=== PATIENT | female | born 1995 | race Asian ===

== ENCOUNTER 2017-08-30 09:06 | Inpatient (IN) | payer OTHER ==
--- NOTE | 2017-08-30 09:34 | EDPHY ---
H & P Stated Complaint: M1-SI - Personal History LMP (Females 10-55): Unknown Current Tetanus Diphtheria and Acellular Pertussis (TDAP): Unsure - Medical/Surgical History Hx Asthma: No Hx Chronic Respiratory Disease: No Hx Diabetes: No Hx Cardiac Disease: No Hx Renal Disease: No Hx Cirrhosis: No Hx Alcoholism: No Hx HIV/AIDS: No Hx Splenectomy or Spleen Trauma: No Other PMH: denies - Social History Smoking Status: Never smoked Time Seen by Provider: 08/30/17 09:22 HPI/ROS: CHIEF COMPLAINT: Suicidal ideation, M1 HISTORY OF PRESENT ILLNESS: 22-year-old female arrives via police on an M1 hold after making suicidal statements to a friend. 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 She notes increasing depression related to difficulty with school, missing her family [place]. She has no suicidal plan. Denies self- injurious behavior. Denies alcohol or drug use. REVIEW OF SYSTEMS: A ten point review of systems was performed and is negative with the exception of the items mentioned in the HPI PAST MEDICAL & SURGICAL HISTORY: No prior history of suicidal attempt or hospitalization for mental health issues SOCIAL HISTORY: Nonsmoker. No illicit drug or alcohol use PHYSICAL EXAM (Prior to examination, patient consented to physical exam, hands were washed and my usual and customary physical exam procedures followed) 1) GENERAL: Well-developed, well-nourished, alert and oriented. Appears to be in no acute distress. Depressed, flat affect 2) HEAD: Normocephalic, atraumatic 3) HEENT: Pupils equal, round, reactive to light bilaterally. Sclera anicteric. 4) NECK: Full range of motion, no meningeal signs. 5) LUNGS: Clear auscultation bilaterally, no wheezes, no rhonchi, no retractions. 6) HEART: Regular rate and rhythm, no murmur, no heave, no gallop. 7) ABDOMEN: No guarding, no rebound, no focal tenderness, negative McBurney's, negative Castellano's, negative Rovsing's, negative peritoneal sign, 8) MUSCULOSKELETAL: Moving all extremities, no focal areas of tenderness, no obvious trauma. No peripheral edema or discoloration. 9) BACK: No CVA tenderness, no midline vertebral tenderness, no fluctuance, no step-off, no obvious trauma, no visual or palpable abnormality. 10) SKIN: No rash, no petechiae. 11) Psychiatric: Patient is oriented X 3, there is no agitation. Depressed, flat affect, withdrawn DIFFERENTIAL DIAGNOSIS: In no particular order including but not limited to suicidal ideation, homicidal ideation, depression (Gabbie Hawthorne Anisha) Constitutional: Initial Vital Signs Temperature (C) 36.8 C 08/30/17 09:13 Heart Rate 105 H 08/30/17 09:13 Respiratory Rate 16 08/30/17 09:13 Blood Pressure 97/70 L 08/30/17 09:13 O2 Sat (%) 93 08/30/17 09:13 O2 Delivery Mode Room Air Allergies/Adverse Reactions: No Known Allergies Allergy (Unverified 06/24/15 01:03) Home Medications: Medication Instructions Recorded NK [No Known Home Meds] 08/30/17 Medical Decision Making ED Course/Re-evaluation: 9:30 a.m.: Patient is on an M1 hold. Care of patient under supervision of secondary supervising physician Dr Santacruz . (Gabbie Hawthorne Anisha) 1pm: I assumed care of this pt. On an M1 hold for SI. MH eval pending. For p.m.-accepted to [address] [place] [address] Telles. EMTALA form filled out. (Luba Olsen) - Data Points Laboratory Results: Laboratory Results 08/30/17 09:30 08/30/17 09:30 08/30/17 08/30/17 08/30/17 12:07 09:30 09:30 WBC RBC Hgb Hct MCV MCH MCHC RDW Plt Count MPV Neut % (Auto) Lymph % (Auto) [place] % (Auto) Eos % (Auto) Baso % (Auto) Nucleat RBC Rel Count Absolute Neuts (auto) Absolute Lymphs (auto) Absolute Monos (auto) Absolute Eos (auto) Absolute Basos (auto) Absolute Nucleated RBC Immature Gran % Immature Gran # Sodium 143 mEq/L mEq/L (135-145) Potassium 3.5 mEq/L mEq/L (3.5-5.2) Chloride 108 mEq/L mEq/L (97-110) Carbon Dioxide 21 mEq/l L mEq/l (22-31) Anion Gap 14 mEq/L mEq/L (8-16) BUN 10 mg/dL mg/dL (7-23) Creatinine 0.5 mg/dL L mg/dL (0.6-1.0) Estimated GFR > 60 Glucose 74 mg/dL mg/dL (70-100) Calcium 9.5 mg/dL mg/dL (8.5-10.4) Beta HCG, Qual NEGATIVE Salicylates < 1.0 mg/dL L mg/dL (2.0-20.0) Urine Opiates Screen NEGATIVE (NEGATIVE) Acetaminophen < 10 mcg/mL L mcg/mL (10-30) Urine Barbiturates NEGATIVE (NEGATIVE) Ur Phencyclidine Scrn NEGATIVE (NEGATIVE) Ur Amphetamine Screen NEGATIVE (NEGATIVE) U Benzodiazepines Scrn NEGATIVE (NEGATIVE) Urine Cocaine Screen NEGATIVE (NEGATIVE) U Marijuana (THC) Screen NEGATIVE (NEGATIVE) Ethyl Alcohol 11 mg/dL H mg/dL (0-10) 08/30/17 09:30 WBC 3.34 10^3/uL L 10^3/uL (3.80-9.50) RBC 4.64 10^6/uL 10^6/uL (4.18-5.33) Hgb 14.1 g/dL g/dL (12.6-16.3) Hct 41.7 % % (38.0-47.0) MCV 89.9 fL fL (81.5-99.8) MCH 30.4 pg pg (27.9-34.1) MCHC 33.8 g/dL g/dL (32.4-36.7) RDW 12.7 % % (11.5-15.2) Plt Count 174 10^3/uL 10^3/uL (150-400) MPV 10.3 fL fL (8.7-11.7) Neut % (Auto) 50.9 % % (39.3-74.2) Lymph % (Auto) 32.9 % % (15.0-45.0) [place] % (Auto) 15.3 % H % (4.5-13.0) Eos % (Auto) 0.3 % L % (0.6-7.6) Baso % (Auto) 0.3 % % (0.3-1.7) Nucleat RBC Rel Count 0.0 % % (0.0-0.2) Absolute Neuts (auto) 1.70 10^3/uL 10^3/uL (1.70-6.50) Absolute Lymphs (auto) 1.10 10^3/uL 10^3/uL (1.00-3.00) Absolute Monos (auto) 0.51 10^3/uL 10^3/uL (0.30-0.80) Absolute Eos (auto) 0.01 10^3/uL L 10^3/uL (0.03-0.40) Absolute Basos (auto) 0.01 10^3/uL L 10^3/uL (0.02-0.10) Absolute Nucleated RBC 0.00 10^3/uL 10^3/uL (0-0.01) Immature Gran % 0.3 % % (0.0-1.1) Immature Gran # 0.01 10^3/uL 10^3/uL (0.00-0.10) Sodium Potassium Chloride Carbon Dioxide Anion Gap BUN Creatinine Estimated GFR Glucose Calcium Beta HCG, Qual Salicylates Urine Opiates Screen Acetaminophen Urine Barbiturates Ur Phencyclidine Scrn Ur Amphetamine Screen U Benzodiazepines Scrn Urine Cocaine Screen U Marijuana (THC) Screen Ethyl Alcohol Departure - Departure Disposition: Home, Routine, Self-Care Clinical Impression: Severe major depression, Suicidal ideation Condition: Good Instructions: Depression (ED), Suicide Prevention for Adults (ED) Referrals: [facility] [Outside] - As per Instructions (Follow-up as suggested.)
[2017-08-30 09:41] LABS: PLATELET COUNT 174 10^3/uL (150-400)
[2017-08-30] MEDS ORDERED: MAGNESIUM HYDROXIDE 30 ML UDCUP PO PRN (21:18)
[2017-08-30] MEDS ORDERED: MAG HYDROX/AL HYDROX/SIMETH 30 ML UDCUP PO PRN (21:18)
[2017-08-30] MEDS ORDERED: ACETAMINOPHEN 325 MG TAB PO PRN (21:18)
--- NOTE | 2017-08-31 09:11 | GHP ---
[f rep st] HISTORY AND PHYSICAL DATE OF ADMISSION: 08/30/2017 CHIEF COMPLAINT: Depression and suicidality. HISTORY OF PRESENT ILLNESS: A 22-year-old female with a history of depression, who presents after re turning home from [place] for a visit, feeling deeply depressed and making attempts at ending her life, reported by her roommate. Upon my evaluation, the patient is reporting no vision changes. No heada omkar. Has had some sore throat in the last couple days, although, no dysphagia. Denies shortness of breath, palpitations, chest pain. Denies abdominal pain. Denies nausea or vomiting. Denies diarrhe a. She reports she does not stool normally every day, which has not been different recently. Her or al intake has been poor. Denies any dysuria. Denies hematuria. Denies rashes, subjective fevers or chills. Denies myalgias or arthralgias. Has had an injury to her right knee with intermittent disc omfort with activity, that is also unchanged. PAST MEDICAL HISTORY: Depression. SOCIAL HISTORY: Occasional tobacco. She drinks alcohol, more heavily in the last couple of weeks, t ypically red wine. Denies any illicit drugs or marijuana. FAMILY HISTORY: Mother has heart problems. REVIEW OF SYSTEMS: A 10-point review of systems is negative with the exception of that reported in t he HPI. PHYSICAL EXAMINATION: VITAL SIGNS: Blood pressure 98/63, heart rate 80, respiratory rate 14, 95% on room air, 36.6. GENERAL: This is a very young, thin, healthy-appearing female, in no acute distres s. HEENT: Notable for dry mucous membranes. Eye exam is negative for any icterus. CARDIAC: Patien t is regular rate and rhythm. PULMONARY: She is clear to auscultation bilaterally. GASTROINTESTINA L: Positive bowel sounds. ABDOMEN: Soft and nontender. MUSCULOSKELETAL: Negative for any lower e xtremity edema. SKIN: Negative for any rashes. NEUROLOGIC: She is alert and oriented x3. PSYCHIATRIC: She has a flat affect. Appears depressed o n my examination. DATA: White count 3.3, hematocrit 41.7, platelets 174. Creatinine of 0.5, sodium 143, blood alcohol of 11. Urine tox negative. EKG, which I personally reviewed and interpreted, shows sinus rhythm, normal axis, normal intervals, with no acute ST-T changes. ASSESSMENT AND PLAN: This is a 22-year-old female presenting with acute suicidality. 1. Depression with acute suicidality. Patient is being admitted to inpatient Psychiatry for evaluat ion and supportive care. We will defer medication choices to the psychiatric team. 2. Severe protein-calorie malnutrition. It sounds as if the patient has lost some weight recently, is quite thin on examination. Most recent BMI are quite low. We will encourage p.o. intake and hallie l regimen. 3. Prophylaxis: Patient is ambulating. 4. Diet: Regular. 5. Disposition: Will be based on the psychiatric evaluation. I have discussed the case with behavioral health nurses. Patient has no acute medical needs. /[id number]/MODL
--- NOTE | 2017-08-31 16:12 | SOAPPROG ---
SOAP Progress Note Assessment/Plan: 08/31/17 18:24 Assessment: 22yo admitted with SI and plan/intent to cut self, had knife. very depressed. hopeless. Plan: cont on M-1 safety precautions, SP-1. agrees she will not harm self in hospital. prn lorazepam agreed to try 25mg zoloft in AM, crushed at pt request. Admission assessment completed. Dictation to follow. Objective: Vital Signs Temp Pulse Resp BP Pulse Ox 36.6 C 80 14 98/63 L 95 08/31/17 06:00 08/31/17 06:00 08/31/17 06:00 08/31/17 06:00 08/31/17 06:00 - Time Spent With Patient Time Spent With Patient: 90min - Pending Discharge Pending Discharge Within 24 Hours: No Pending Discharge Within 48 Hours: No ICD10 Worksheet Patient Problems: Problems Problem Status Onset Severe major depression Acute Suicidal ideation Acute
[2017-08-31] MEDS: LORazepam 0.5 MG TAB PO PRN (22:33)
[2017-09-01] MEDS: LORazepam 0.5 MG TAB PO PRN (04:25)
[2017-09-01] MEDS ORDERED: SERTRALINE HCL 25 MG TAB PO SCH (09:00)
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
[2017-09-02] MEDS ORDERED: OLANZapine 2.5 MG TAB PO ONE ×2 (10:41→10:48)
--- NOTE | 2017-09-02 10:52 | SOAPPROG ---
SOAP Progress Note Assessment/Plan: Assessment: Bipolar Disorder type 2, depressed with mixed features PTSD symptoms Borderline PD symptoms Low weight - BMI 18.0 R/O Mood/Anxiety Disorder secondary to a medical condition Patient admitted for SI to cut wrist. Patient reports continued SI on unit but denies plan or intent and has no past episodes of self-harm. Patient having severe insomnia, severe depression, severe fatigue, irritability. Plan: Patient is on short term certification Education about mood disorders and PTSD Offer Olanzapine 2.5mg for mixed episode. If tolerating schedule at bedtime. 15 minute safety/SP1 checks Check HgbA1c, CBC, LFTs, TSH, lipids Coordinate discharge planning with foster mother from [place], who reportedly is coming to [place], and [facility]. Monitor Food intake. Ordered nutritional supplements. 09/02/17 10:55 Subjective: CC: "Don't want to be here." Patient reports prior to admission for one month having sadness, fatigue, low energy, lack of interest, and thoughts of suicide and cutting wrist. Denies actual self-harm or furtherance toward self-harm; reports calling foster mother in [place], who called police. Reports no past suicide attempts. Reports wanting to live for her friends and to complete school. Reports racing thoughts and only sleeping 4 hours most nights for past several months. Reports in past having brief mood swings with increased speech and activity but denies any history of grandiosity or severe reckless behavior. Reports feeling irritable, angry, and agitated for past month. Reports sertraline on weekend made her feel more agitated. Denies any recent violence or HI. Reports low energy and fatigue. Denies nightmares or flashbacks but endorses hypervigilance and feeling unsafe around the other patients. Objective: Vital Signs Temp Pulse Resp BP Pulse Ox 37.0 C 109 H 16 101/65 95 09/02/17 06:00 09/02/17 06:00 09/02/17 06:00 09/02/17 06:00 09/02/17 06:00 alert female with glasses. Appears thin. Speech few words. Mood 'angry , don't want to be here' affect briefly irritable. Thoughts briefly organized, illogical when discussing plan to kill herself if she is not discharged. Denies plan/intent to harm self on the unit. Reports goal to complete school and move back to [place] to be with friends. Denies AH or paranoia. Denies violent thoughts. Insight limited/poor. Judgment questionable. Staff report over weekend patient took once dose of Sertraline then refused. Slept 3.5 hours over night On line of sight precaution due to refusing to discuss safety planning. Isolative on unit, appearing anxious at times. - Time Spent With Patient Time Spent With Patient: 30 minutes - Pending Discharge Pending Discharge Within 24 Hours: No Pending Discharge Within 48 Hours: Yes Pending Discharge Date: 09/04/17 Pending Discharge Time: 11:00 ICD10 Worksheet Patient Problems: Problems Problem Status Onset Bipolar II disorder Acute Severe major depression Acute Suicidal ideation Acute
[2017-09-02] MEDS ORDERED: hydrOXYzine HCL 25 MG TAB PO PRN (16:14)
[2017-09-02] MEDS ORDERED: OLANZapine 2.5 MG TAB PO SCH (21:00)
[2017-09-03 08:02] LABS: PLATELET COUNT 234 10^3/uL (150-400)
[2017-09-03] MEDS ORDERED: OLANZapine 2.5 MG TAB PO SCH (09:11)
--- NOTE | 2017-09-03 09:17 | SOAPPROG ---
SOAP Progress Note Assessment/Plan: Assessment: Bipolar Disorder type 2, depressed with mixed features PTSD symptoms Borderline PD symptoms Low weight - BMI 18.0 R/O Mood/Anxiety Disorder secondary to a medical condition Patient admitted for SI to cut wrist. Patient denies SI and reports improved sleep and reduced irritability. Plan: Patient is on short term certification Education about mood disorders and PTSD Olanzapine 5mg QHS 15 minute safety/SP1 checks Discharge tomorrow if continued improvement Coordinate discharge planning with foster mother from [place] and [facility]. 09/03/17 09:16 Subjective: CC: "Better" Patient reports sleeping well and tolerating Zyprexa. Reports napping after mid -day Zyprexa 2.5mg and sleeping after HS 2.5mg. Reports reduced irritability, reduced agitation, and reduced anger. Denies feeling slowed or sedated. Reports goal of returning to [place] to live with friends. Reports she is unsure if she will return to school. Agrees to have care coordinated with foster mother from [place] who is in town. Reports feeling bored on unit and wants to leave. Objective: Vital Signs Temp Pulse Resp BP Pulse Ox 36.6 C 92 14 100/60 94 09/03/17 06:00 09/03/17 06:00 09/03/17 06:00 09/03/17 06:00 09/03/17 06:00 LFTs, TSH, Lipids WNL HgbA1c and CBC pending Staff report patient quiet, isolative, calm on unit without SI. Alert F. Ambulatory without weakness. Fair eye contact. Speech RRR. Mood 'better' affect briefly reactive, brief smiling. Thoughts organized. Denies SI or HI. Denies AH or paranoia. Limited insight. - Time Spent With Patient Time Spent With Patient: 20 minutes - Pending Discharge Pending Discharge Within 24 Hours: Yes Pending Discharge Within 48 Hours: No Pending Discharge Date: 09/04/17 Pending Discharge Time: 11:00 ICD10 Worksheet Patient Problems: Problems Problem Status Onset Bipolar II disorder Acute Severe major depression Acute Suicidal ideation Acute
--- NOTE | 2017-09-03 17:05 | SOAPPROG ---
SOAP Progress Note Assessment/Plan: Assessment: Neutropenia, moderate. She is not at risk for opportunistic infections. Ordered labs to further evaluate including repeat CBC tomorrow, HIV, B12, folate , copper, [place] virus serology. Will see patient and advise further tomorrow, 09/04/2017. 09/03/17 17:04 Subjective: Asked to see patient regarding neutropenia. Chart and labs reviewed. Objective: Vital Signs Temp Pulse Resp BP Pulse Ox 36.6 C 92 14 100/60 94 09/03/17 06:00 09/03/17 06:00 09/03/17 06:00 09/03/17 06:00 09/03/17 06:00 Laboratory Results 09/03/17 04:45 ICD10 Worksheet Patient Problems: Problems Problem Status Onset Bipolar II disorder Acute Severe major depression Acute Suicidal ideation Acute
[2017-09-04 06:57] VITALS: BP 93/60
[2017-09-04 08:15] LABS: PLATELET COUNT 166 10^3/uL (150-400)
[2017-09-04 09:58] LABS: HIV TYPE 1 AND 2 NEGATIVE (NEGATIVE)
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
== END 2017-09-04 13:49 | disposition home or self-care (01) | DRG 885 ==
LOC: BBEH 19:25
PROVIDERS: ADMIT Psychiatry & Neurology Psychiatry; ATTEND Psychiatry & Neurology Psychiatry
DX: F31.81 Bipolar II disorder (principal); Z68.1 Body mass index [BMI] 19.9 or less, adult; F43.10 Post-traumatic stress disorder, unspecified; R63.6 Underweight
CPT/HCPCS: 80305; 82525-90; 82607-90; 86664-90; 86665-90; G0480

== ENCOUNTER 2018-08-04 13:45 | Emergency (ER) | payer OTHER ==
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
[2018-08-04 14:18] LABS: PLATELET COUNT 170 10^3/uL (150-400)
[2018-08-04 17:55] VITALS: BP 103/78
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
--- NOTE | 2018-08-04 18:21 | ASMTTCLDSP ---
TLC Discharge Disposition Disposition: Answers: Discharge If Answers: Yes DISCHARGED: Patient/family given suicide hotline info & SAMHSA brochure? Discharge Concerns/Recommendations: Notes: In consultation with [facility] ED physician Guillermina Bagley MD and construction [employer] dig[employer] psychiatrist, Derik Freedman MD both concurred that pt does not appear to meet 27-65 criteria requiring psychiatric hospitalization as pt does not appear to be an imminent risk of harm to self/others/gravely disabled due to a mental illness condition. Dr. Freedman provided telephone order read back vacating M1 hold at 17:39 hrs. Was patient given the Answers: Not applicable Inpatient Behavioral Health Prohibited Belongings List while in the ED? Psychiatrist vacating M1 Derik Melendez MD Hold: Date and time M1 hold 08/04/2018 05:39 AM vacated (time format is hh:mm): Type of Hold: Answers: M1/72-hour Hold Hold initiated by: Answers: Other Notes: [facility] Date Signed: 08/04/2018 06:20 PM Electronically Signed By:Suma Ott LCSW
== END 2018-08-04 18:04 | disposition home or self-care (01) ==
PROC: GZ11ZZZ Psychological Tests, Personality and Behavioral (ICD-10-PCS; principal; 2018-08-04)
DX: R45.851 Suicidal ideations (principal); Z63.0 Problems in relationship with spouse or partner
CPT/HCPCS: 80305; G0480